=== PATIENT | male | born 1945 | race Caucasian/White ===

== ENCOUNTER 2020-01-01 07:52 | Outpatient (CLI) | payer BC ==
--- NOTE | 2020-01-01 08:51 | RAD ---
CHEST 2 VIEWS: Date: 01/01/2020 HISTORY: Abnormal weight loss. COMPARISON: None. FINDINGS: Normal cardiac silhouette. Pulmonary vessels and hilum are normal. Costophrenic angles are clear. No consolidation or mass. No pneumothorax or acute osseous abnormalities. Probable bone island projectin g over the posterior left fifth rib. IMPRESSION: No acute cardiopulmonary process. POS: OFF
--- NOTE | 2020-01-01 09:20 | BD ---
EXAM: DEXA bone density examination HISTORY: 24-year-old osteopenic male for screening COMPARISON: None FINDINGS: L1--bone mineral density 0.929 g/sq cm; T score -1.3 L2--bone mineral density 0.934 g/sq cm; T score -1.5 L3--bone mineral density 0.839 g/sq cm; T score -2.4 L4--bone mineral density 0.762 g/sq cm; T score -3.0 Total L1-L4--bone mineral density 0.861 g/sq cm; T score -2.1 Left femoral neck--bone mineral density0.674; T score -1.9 Total proximal left femur--bone mineral density 0.804; T score -1.5 IMPRESSION: Osteopenia. This patient has a 10 year WHO fracture risk of a major osteoporotic fracture of 6.8% and of a hip fracture of 2.1%.
--- NOTE | 2020-01-01 10:02 | ULT ---
ABDOMINAL ULTRASOUND: HISTORY: Abdominal pain and weight loss. FINDINGS: Real-time imaging of the upper abdomen shows a normal-appearing gallbladder. The common duct is 5 mm . Visualized liver parenchyma shows no focal findings. It measures 15 cm in length. The spleen is 7 cm. Right and left kidneys are normal in size and not obstructed. The pancreas is obscured. The abdominal aorta and IVC regions are unremarkable. IMPRESSION: Unremarkable abdomen ultrasound. POS: [facility]
== END 2020-01-01 07:53 | disposition home or self-care (01) ==
LOC: BICULT 07:52
PROVIDERS: ATTEND Internal Medicine
DX: Z13.820 Encounter for screening for osteoporosis (principal); R63.4 Abnormal weight loss; M85.89 Other specified disorders of bone density and structure, multiple sites
CPT/HCPCS: 71046; 77080; 93975

== ENCOUNTER 2022-05-17 09:06 | Outpatient (CLI) | payer MEDICARE, BC | END 2022-05-17 09:07 | disposition home or self-care (01) | LOC: BICMAMMO 09:06 | PROVIDERS: ATTEND Internal Medicine | DX: M81.0 Age-related osteoporosis without current pathological fracture (principal); M85.89 Other specified disorders of bone density and structure, multiple sites | CPT/HCPCS: 77080 ==

== ENCOUNTER 2023-02-22 08:59 | Outpatient (CLI) | payer MEDICARE, BC | END 2023-02-22 09:00 | disposition home or self-care (01) | LOC: SCSMRI 08:59 | PROVIDERS: ATTEND Psychiatry & Neurology Neurology | DX: M47.26 Other spondylosis with radiculopathy, lumbar region (principal); M48.07 Spinal stenosis, lumbosacral region; M47.817 Spondylosis without myelopathy or radiculopathy, lumbosacral region; M47.815 Spondylosis without myelopathy or radiculopathy, thoracolumbar region | CPT/HCPCS: 72148 ==